=== PATIENT | female | born 1970 ===

== ENCOUNTER 2018-02-21 12:56 | Emergency (ER) | payer BC, OTHER ==
[2018-02-21 13:12] VITALS: BMI 31.1
[2018-02-21 13:16] VITALS: TEMP 98.4; O2SAT 98
[2018-02-21] MEDS ORDERED: Lidocaine 5% Patch TD STA (14:16)
[2018-02-21] MEDS ORDERED: Lidocaine 5% Patch TD ONE (14:22)
[2018-02-21 15:15] VITALS: BP 147/92; PULSE 78; RESP 16
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
== END 2018-02-21 16:35 | disposition home or self-care (01) ==
LOC: C.ER 12:56
DX: S13.4XXA Sprain of ligaments of cervical spine, initial encounter (principal); S39.012A Strain of muscle, fascia and tendon of lower back, initial encounter; V53.5XXA Driver of pick-up truck or van injured in collision with car, pick-up truck or van in traffic accident, initial encounter
CPT/HCPCS: 72125; 96372; 99285; J1885